=== PATIENT | female | born 1970 | race Hispanic/Latino ===

== ENCOUNTER → 2016-05-03 | Outpatient (CLI) | payer SELFPAY ==
--- OUTSIDE RECORDS SUMMARY | 2016-05-03 09:16 | XMS REPORT ---
Author Author ELLIOTT KU Organization [employer] Address Unknown Phone Unavailable Care Team Providers Care Maintenance Plumber Name Role Phone KING ELLIOTT CP Unavailable Allergies, Adverse Reactions, Alerts Substance Reaction Event Type N.K.D.A. Info Not Available Non Drug Allergy Problems Problem Type Condition Code Onset Dates Condition Status Problem Generalized anxiety disorder F41.1 Active Problem Allergic conjunctivitis, bilateral H10.13 Active Problem Chest pain, unspecified type R07.9 Active Assessment Generalized anxiety disorder F41.1 Active Assessment Chest pain, unspecified type R07.9 Active Medications Medication Code System Code Instructions Start Date End Date Status Dosage Ketotifen Fumarate [facility] [address]-74 0.025 % Ophthalmic Twice a day 1 drop into affected eye Aspir-81 [facility] [address]-69 81 MG Orally Once a day 1 tablet Sertraline HCl [facility] [address]-10 100 MG Orally Once a day August 18, 2015 1/2 tablet Procedures Procedure Coding System Code Date Office Visit, Est Pt., Level 3 CPT-4 70949 September 10, 2015 Vital Signs Date/Time: September 10, 2015 Cardiac Monitoring Heart Rate 60 bpm Weight 133 lbs Height 60 in Blood Pressure Diastolic 58 mmHg Blood Pressure Systolic 82 mmHg Results No Known Results Summary Purpose [employer] Submission
--- NOTE | 2016-05-03 14:46 | Diagnostic Imaging Report ---
PROCEDURE: US abdomen complete. TECHNIQUE: Multiple real-time grayscale images were obtained over the abdomen in various projections. INDICATION: Abdominal pain. FINDINGS: There are no prior studies available for comparison. There is no evidence for cholelithiasis or acute cholecystitis and the common bile duct is not dilated. The liver does not appear to be enlarged and there is no focal mass involving the liver. The biliary tree is not abnormally distended either. The kidneys, spleen, pancreas, aorta, and inferior vena cava are unremarkable for an acute abnormality. There is no mass or free fluid collection noted. IMPRESSION: 1. There is no evidence for an acute abnormality of the abdomen. 2. If clinical concern regarding an underlying abnormality of the gallbladder exists and further imaging is desired, then a nuclear medicine hepatobiliary scan would be recommended. Dictated by: Dictated on workstation # [id number]
== END ==
LOC: RAD 09:12
PROVIDERS: ATTEND Psychologist
DX: R10.84 Generalized abdominal pain (principal)
CPT/HCPCS: 76700